=== PATIENT | female | born 1985 | race Caucasian/White ===

== ENCOUNTER 2019-04-14 08:18 | Outpatient (RCR) | payer OTHER, SELFPAY ==
[2019-04-14 09:52] LABS: Hematocrit 37.2 % (37.0-47.0); Hemoglobin 12.1 g/dL (12.0-15.0)
[2019-04-14 10:03] LABS: Glucose 1 Hour PP 50gm Dose 72 mg/dL
[2019-04-14 10:32] LABS: Vitamin D 25 Hydroxy 59.6 ng/mL
[2019-04-14 10:43] LABS: HIV 1/2 Ab P24 Ag Result Negative (Negative)
[2019-04-14] MEDS: RHO(D) IMMUNE GLOBULIN 300 MCG SYRINGE IM (14:47)
== END 2019-07-13 23:59 | disposition home or self-care (01) ==
LOC: ANHLAB 08:18
PROVIDERS: Visit Provider Obstetrics & Gynecology Gynecology
DX: Z36.89 Encounter for other specified antenatal screening (principal); Z29.13 Encounter for prophylactic Rho(D) immune globulin; O36.0930 Maternal care for other rhesus isoimmunization, third trimester, not applicable or unspecified; Z3A.00 Weeks of gestation of pregnancy not specified
CPT/HCPCS: 36415; 82306; 82947; 85014; 85018; 86703; 90384; 96372; G0432; J2790

== ENCOUNTER 2019-07-01 05:09 | Inpatient (IN) | payer OTHER, SELFPAY ==
[2019-07-01] VITALS (97 sets, daily range): BP systolic 83–168; BP diastolic 37–141; PULSE 43–170; RESP 16–20; TEMP 36.2–36.9; O2SAT 99–100; BMI 26.4
[2019-07-01 05:44] LABS: Basophils Percent Auto 0.3 % (0.2-1.2); Eosinophils Percent Auto 0.6 % (0-4.4); Hematocrit 37.7 % (37.0-47.0); Hemoglobin 12.5 g/dL (12.0-15.0); Immature Granulocyte Absolute 0.03 K/mm3 (0.00-0.031); Immature Granulocyte Percent A 0.4 % (0-0.5); Lymphocytes Percent Auto 26.2 % (18.3-44.2); Mean Corpuscular HGB Conc 33.2 g/dl (32-36); Mean Corpuscular Hemoglobin 30.7 pg (26-34); Mean Corpuscular Volume 92.6 fl (80-100); Mean Platelet Volume 9.8 fl (7.4-10.4); Monocytes Absolute Auto 0.5 K/mm3 (0.1-0.6); Monocytes Percent Auto 7.4 % (2.6-8.5); Neutrophils Absolute Auto 4.5 K/mm3 (1.3-6.7); Neutrophils Percent Auto 65.1 % (45.5-73.1); Platelet Count Result 204 k/mm3 (150-375); Red Blood Count 4.07 M/mm3 (4.2-5.4); Red Cell Distribution Width 13.2 % (11.5-14.5); White Blood Count 6.9 K/mm3 (4.5-10.0)
--- NOTE | 2019-07-01 05:45 | LDADM ---
This patient, Nicolasa Bradshaw, was admitted to Labor/Delivery/Recovery 104 on 07/01/19 at 05:09. Plans for labor, pain management and were discussed with patient. Patient/family oriented to hospital policies and general routines including ID bracelet, bed and alarms, visiting hours, pain management, procedures, bathroom and other care routines, personal items, smoking policy, room service/diet and guest tray routines, security routines, and visiting hours. Patient/Family are encouraged to report perceived risks to care and to ask questions if they do not understand what they are told or what they should do. See OBIX for further documentation.
[2019-07-01] MEDS: AMPICILLIN 2 GM/NS 100 ML 2 GM/100 ML BAG IVPB (05:54)
[2019-07-01] MEDS: LACTATED RINGERS 1,000 ML 125 ML IV CONT ×3 (05:55→11:12)
--- NOTE | 2019-07-01 06:24 | WPDANESEPP ---
Anes - Eval Pre Procedure Procedure: Labor epidural Date/Time: 07/01/19 06:24 Preop Diagnosis: pain during labor Pre Op Diagnosis: induction of labotr Patient Data Age: 34 Gender: F Height: 1.63 m Weight: 70 kg Last Vital Signs Temp 36.9 C 07/01/19 05:58 Pulse 92 07/01/19 05:39 BP 109/72 07/01/19 05:39 Allergies Allergy/AdvReac Type Severity Reaction Status Date / Time Sulfa (Sulfonamide AdvReac Mild Nausea and Verified 06/16/19 12:29 Antibiotics) Vomiting Home Medications Medication Instructions Recorded Confirmed Type PNV cmb#95-ferrous fumarate-FA 1 tablet PO DAILY 06/16/19 06/16/19 History [] cholecalciferol (vitamin D3) 2,000 unit PO DAILY 06/16/19 06/16/19 History [Vitamin D3] Laboratory Tests 07/01/19 07/01/19 05:35 05:35 WBC 6.9 K/mm3 K/mm3 (4.5-10.0) RBC 4.07 M/mm3 L M/mm3 (4.2-5.4) Hgb 12.5 g/dL g/dL (12.0-15.0) Hct 37.7 % % (37.0-47.0) MCV 92.6 fl fl (80-100) MCH 30.7 pg pg (26-34) MCHC 33.2 g/dl g/dl (32-36) RDW 13.2 % % (11.5-14.5) Plt Count 204 k/mm3 k/mm3 (150-375) MPV 9.8 fl fl (7.4-10.4) Immature Gran % (Auto) 0.4 % % (0-0.5) Neut % (Auto) 65.1 % % (45.5-73.1) Lymph % (Auto) 26.2 % % (18.3-44.2) [place] % (Auto) 7.4 % % (2.6-8.5) Eos % (Auto) 0.6 % % (0-4.4) Baso % (Auto) 0.3 % % (0.2-1.2) Lymph # (Auto) 1.80 K/mm3 K/mm3 (0.9-3.2) [place] # (Auto) 0.5 K/mm3 K/mm3 (0.1-0.6) Eos # (Auto) 0.0 K/mm3 K/mm3 (0-0.3) Baso # (Auto) 0.0 K/mm3 K/mm3 (0.0-0.1) Abs Immat Gran (auto) 0.03 K/mm3 K/mm3 (0.00-0.031) Absolute Neuts (auto) 4.5 K/mm3 K/mm3 (1.3-6.7) Absolute Nucleated RBC 0.0 K/mm3 K/mm3 (0.0-0.012) Nucleated RBC % 0.0 % % (0.0-0.2) RPR Pending Patient hx anesthesia problems: none Family hx anesthesia problems: none [facility] Family History Family History (Updated 06/16/19 @ 12:32 by Alexander Saavedra RN) Grandparent Diabetes mellitus Congestive heart failure Social History Social History Smoking status: Never smoker Substance use: never Spiritual care concerns: No Exam Day of Procedure 07/01/19 06:24
--- NOTE | 2019-07-01 07:53 | WPDOBADMIT ---
Obstetrics - Admit Note Admission Note: record reviewed. No pertinent additions to the history and/or any subsequent changes in the physical findings that are not consistent with the expected course of the were found. Additions to the history and/or subsequent changes in the physical findings follow. Here for MIL. Cervix 1-2/50/-2 AROM with clear fluid. FHTs reactive.
[2019-07-01] MEDS: AMPICILLIN 1 GM/NS 50 ML 1 GM/50 ML BAG IVPB ×2 (10:02→14:21)
--- NOTE | 2019-07-01 15:44 | P.PCNOB_ITS ---
OB - Delivery Note Procedure Delivery date: 07/01/19 Procedure: Intrapartal events: None Induction method: per pitocin protocol Delivery monitor: external FHT and external uterine Route of delivery: Laceration description: Perineal - 2nd Degree Delivery repair: vicryl Specimen: No Estimated blood loss (mL): 50 [place] Baby Weeks of gestation at delivery: 39
--- NOTE | 2019-07-01 15:45 | PM.OBDSVD ---
DS: Diagnosis Discharge Diagnosis (1) 39 weeks gestation of : Code(s): Z3A.39 - 39 weeks gestation of Status: Acute (2) (normal spontaneous vaginal delivery): Code(s): O80 - Encounter for full-term uncomplicated delivery Status: Acute OB - DS: Summary OB Procedures : Ultrasound OB Procedures Intrapartum: Spontaneous Vag Delivery OB Procedures: : None Peripartum Data Delivery Method: Natural Vaginal Laceration description: Perineal - 2nd Degree complications: none Status at Discharge Functional status at discharge: independent ambulation Overall status at discharge: patient is progressing back to baseline Time Spent with Patient Time attestation: Total time spent providing and/or coordinating discharge services: DS: Data Data Completed and Pending Labs on day of discharge: Labs from last 24 hours 07/01/19 07/01/19 07/01/19 05:35 05:35 05:34 WBC 6.9 RBC 4.07 L Hgb 12.5 Hct 37.7 MCV 92.6 MCH 30.7 MCHC 33.2 RDW 13.2 Plt Count 204 MPV 9.8 Immature Gran % (Auto) 0.4 Neut % (Auto) 65.1 Lymph % (Auto) 26.2 [place] % (Auto) 7.4 Eos % (Auto) 0.6 Baso % (Auto) 0.3 Lymph # (Auto) 1.80 [place] # (Auto) 0.5 Eos # (Auto) 0.0 Baso # (Auto) 0.0 Abs Immat Gran (auto) 0.03 Absolute Neuts (auto) 4.5 Absolute Nucleated RBC 0.0 Nucleated RBC % 0.0 RPR Pending Blood Type A Negative Antibody Screen Positive Antibody Identification Passive Due to RH Imm Glob Antigen Identification Cancelled DONIS, IgG Interpret Not Performed DONIS, Poly Interpret Negative DONIS, Complement Interp Not Performed Discharge Plan Discharge Attending physician on discharge: Krys Dahl Discharging Clinician: Krys aDhl Anticipated Discharge Date/Time: 07/02/19 15:46 Patient Disposition: Home, Self-Care Activity: pelvic rest Diet: regular Discharge Instructions: Education: Mom and Baby Guide Given to: Mother Follow-Up: Call your delivering provider's office for an appointment to be seen in: Call MD for appointment Mom and baby should come to the [facility] for the follow-up appointment. Appointment Date/Time: July 05, 2019 at 10:00 am What to expect at your follow-up visit: Physical Assessment Call [phone] if you are unable to keep your appointment time. BREAST CARE: 1. Wear a snug supportive bra. 2. For engorgement discomfort: Breast Feeding: A. Apply warm moist washcloths B. Express milk as needed to relieve engorgement C. Wear loose clothing 3. For sore nipples: A. Identify correct latch-on B. Apply warm moist washcloths before and after nursing C. Air dry nipples after nursing D. May apply Lansinoh cream to nipples EPISIOTOMY/PERINEAL CARE: 1. Until bleeding stops, use your harry bottle after urinating 2. Change your pad frequently throughout the day 3. You may take sitz baths several times a day (fill your bathtub with warm water and soak for 20 minutes.) Do NOT bathe in the water 4. No tub baths until seen by your physician - You may shower ACTIVITY: 1. Rest as much as possible. 2. Do not exercise or lift anything heavier than your baby (such as laundry or other children.) 3. Avoid stairs or driving as much as possible. 4. Do not put anything into the vagina. No douching, tampons, or sexual activity until seen by physician. NOTIFY PHYSICIAN IF YOU HAVE ANY QUESTIONS OR IF ANY OF THE FOLLOWING SYMPTOMS OCCUR: 1. If your stitches becomes red, swollen, or more painful than what you have experienced in the hospital. 2. If your vaginal bleeding becomes foul smelling. 3. If your vaginal bleeding becomes more heavy than a period or if your bleeding changes from pink to bright red. However, you may pass an occasional walnut-sized clot once or tw
--- NOTE | 2019-07-01 18:57 | OBPPTRN ---
Patient transferred to post room #284 via wheelchair. Support person, Vignesh, present. Oriented to unit, room, information board, rooming in, admission packet and security measures. Patient verbalizes understanding.
[2019-07-01] MEDS: IBUPROFEN 600 MG TABLET PO (23:47)
[2019-07-02] MEDS: ACETAMINOPHEN 325 MG TABLET 650 MG PO (02:12)
[2019-07-02 04:58] LABS: Hematocrit 38.2 % (37.0-47.0); Hemoglobin 13.2 g/dL (12.0-15.0)
[2019-07-02 07:31] LABS: Rapid Plasma Reagin Non-Reactive (NonReactive)
[2019-07-02 08:25] VITALS: BP 97/69; PULSE 90; RESP 16; TEMP 36.8; O2SAT 96
[2019-07-02] MEDS: MULTIVIT/MIN/PREN/FOL AC/IRON TABLET 1 TAB PO (08:51)
[2019-07-02] MEDS: IBUPROFEN 600 MG TABLET PO (08:51)
[2019-07-02] MEDS: RHO(D) IMMUNE GLOBULIN 300 MCG SYRINGE IM (09:57)
--- NOTE | 2019-07-02 10:30 | PC.NURSE ---
Consulted with patient, mother reports this is 3rd child to breastfeed. Mother states is eagerly latching without difficulties or discomfort. Reviewed infant feeding cues, frequencies, duration of feedings, feeding elimination flow sheet, and signs of adequate intake. Mother wishes 24 hour discharge. Mother is feeding as required and waking to feed if needed. is currently meeting outcomes for weight, output, jaundice and feeding frequencies. Mother states she feels confident to continue effective at home. Reviewed transition to breast milk, signs of adequate intake, and engorgement/relief. Instructed to call ICP if intake/output less than required. Reviewed regular medications mother is taking. Information provided per Bridget. Reviewed community resources on the [facility] website and in the Mom/Baby guide. Information on outpatient services provided. Mother has no further questions at this time.
--- NOTE | 2019-07-02 14:07 | PC.NURSE ---
Patient was given the opportunity to view the discharge video Mother & Baby Care, The First Two Weeks and to ask questions. Patient declined viewing the video and has been given the mother/baby guide for home reference.
--- NOTE | 2019-07-02 15:41 | WPDANLDPN2 ---
Anes-Prog Note L&D Date/Time: 07/02/19 15:41 Comfortable throughout: labor and delivery Neuraxial method: epidural Epidural/Spinal procedure site: clean & non-tender Neuro status: Neuro function grossly intact. Cardiovascular status: normal Respiratory status: normal Airway patency: baseline Mental status: baseline Post-Op hydration status: normal Vital Signs: Last Vital Signs Temp 36.8 C 07/02/19 08:25 Pulse 90 07/02/19 08:25 Resp 16 07/02/19 08:25 BP 97/69 L 07/02/19 08:25 Pulse Ox 96 07/02/19 08:25 I/O: Intake & Output 07/01/19 07/02/19 07/02/19 23:59 07:59 15:59 Intake Total 1000 Output Total 85 Balance 915 Post-procedural complaints: none Patient feedback: Patient satisfied with anesthetic care.
[2019-07-05 09:47] VITALS: BP 110/67; PULSE 79; RESP 16; TEMP 36.4
== END 2019-07-02 18:07 | disposition home or self-care (01) | DRG 807 ==
LOC: ANHLDR 07-05 10:29 → ANHOB2 07-05 10:29
PROVIDERS: Admitting Provider Obstetrics & Gynecology Gynecology; Visit Provider Obstetrics & Gynecology
DX: O99.824 Streptococcus B carrier state complicating childbirth (principal); Z37.0 Single live birth; Z3A.39 39 weeks gestation of pregnancy; O70.1 Second degree perineal laceration during delivery
CPT/HCPCS: 36415; 85014; 85018; 85025; 86592; 86850; 86880; 86900; 86901; 90384; A9270; J0290; J2590; J2790; J2795; J7120

== ENCOUNTER 2023-06-30 02:13 | Day surgery (SDC) | payer OTHER, SELFPAY ==
[2023-06-18 14:31] VITALS: BMI 23.1
--- NOTE | 2023-06-18 14:32 | PC.NURSE ---
Report to the Outpatient Waiting Room, entrance under the green pavilion located off [facility], at time _0600_ on date _06/30/23_. Planned Procedure Time: _0730_. Time changes happen often and if your time is changed the preop area will call you the afternoon before. - You and your visitor will be asked to self-screen and do not enter if you have any COVID symptoms. - A mask is optional within the hospital at this time. Patients may have clear liquids (water, carbonated beverages, clear teas, apple juice) until 3 hours prior to surgery with a maximum of 20 ounces. - No food from midnight until time of surgery - Infants may have breast milk until 4 hours before surgery, formula 6 hours prior to surgery. - Children will be allowed to drink immediately following surgery. If applicable, please bring a bottle or sippy cup to assist with drinking. Juice, water, soda, and popsicles are readily available. For infants on formula, please bring formula the day of surgery. Pacifiers are allowed. Take the following medications with a SIP of water the morning of surgery: _none__ DO NOT STOP ANY OF YOUR OTHER PRESCRIPTION MEDICATIONS PRIOR TO SURGERY ?EXCEPT THE FOLLOWING Medications to discontinue per physician __stop supplements 3 days prior Date to take last dose Please no make-up, nail kinyarwanda, hairspray, perfume, deodorant, or body powder the day of surgery. No jewelry (including any body piercings) or valuables the day of surgery, leave them at home. Please take a shower or bath the night before, or the morning of, surgery with an antibacterial soap. Wear comfortable, loose fitting clothing. Children are encouraged to wear pajamas. - Jewelry must be removed prior to entering the operating room. Rings and piercings that are not removed may be cut off. - The hospital will not accept responsibility for valuables. - Please leave all valuables, including medications, at home the day of surgery. If you are going home after surgery, a licensed tow bar driver must drive you home. - NO public transportation without another adult if you receive anesthesia. - We recommend that an adult stay with you for 24 hours following discharge. - We also recommend that you do not drive, make important decision, drink alcoholic beverages, or take any drugs that were not prescribed by your health care provider for at least 24 hours after your discharge time. For Pediatric surgeries, we recommend two adults accompany the child home. Follow any additional instructions given to you from your surgeon. If you or anyone in your household have experienced Covid symptoms in the past week, please notify your surgeon or the nurse liaison at the phone number below for possible testing. Telephone instructions given to _Patient__and asked if any additional questions and then verbalized understanding. Patient advised to call surgeon office or pre surgery nurse liaison [phone] if any additional questions.
[2023-06-30] MEDS: ACETAMINOPHEN 500 MG TABLET 1000 MG PO (06:30)
[2023-06-30] MEDS: LACTATED RINGERS 1,000 ML 30 ML IV CONT ×2 (06:30→08:02)
--- NOTE | 2023-06-30 06:45 | P.PNAN_ITS ---
Anes - Initial Pre Proc Eval Procedure: Operation Date: 06/30/23 07:30 Proposed Procedures p Hysteroscopy Dilation and Curettage - Krys Dahl MD Date/Time: 06/30/23 06:45 Surgeon: Krys Dahl MD Pre Op Diagnosis: menorrhagia Patient Data Age: 38 Gender: F Height: 1.63 m Weight: 61.24 kg Allergies Allergy/AdvReac Type Severity Reaction Status Date / Time No Known Allergies Allergy Verified 06/18/23 14:22 Home Medications Medication Instructions Recorded Confirmed Type cholecalciferol (vitamin D3) 50 2,000 unit PO DAILY 06/16/19 06/18/23 History mcg (2,000 unit) tablet (Vitamin D3) Patient hx anesthesia problems: none Family hx anesthesia problems: none Results Review: All pre-operative results and documents have been reviewed as part of the pre- operative evaluation. [facility] Family History Family History (Updated 06/16/19 @ 12:32 by Alexander Saavedra RN) Grandparent Diabetes mellitus Congestive heart failure Social History Social History Smoking status: Never smoker Alcohol intake: current Drinks per week: 5 Substance use: never Substance use type: does not use Living arrangements: with family Spiritual care concerns: No Anes - Eval Final PreProcedure Day of Procedure 06/30/23 06:45 Patient weight: normal Heart: regular rate and rhythm Lungs: clear to auscultation and normal air movement Airway: Mallampati scale class II Neurological: alert and oriented Last oral intake: >/= 8 hours ASA classification: I Emergent: no Anesthetic plan: proceed Anesthesia type and monitoring: general GIVS and standard monitoring Results Review: All pre-operative results and documents have been reviewed as part of the pre- operative evaluation. Informed Consent: The patient's anesthetic plan and its attendant risks and benefits were discussed with the patient/family/POA. Questions were solicited and answers provided to the satisfaction of the patient/family/POA.
[2023-06-30 07:00] VITALS: BP 119/78; PULSE 74; RESP 14; TEMP 36.4; O2SAT 100
--- NOTE | 2023-06-30 07:24 | WPDHPUPDATE1 ---
History and Physical Update Update Date/Time: 06/30/23 07:24 History and Physical has been reviewed, including an updated exam of the patient. There are NO changes in the patient's condition. Risks, benefits, and alternatives have been discussed and questions answered. Patient agrees to proceed with procedure.
--- NOTE | 2023-06-30 07:25 | P.HP_ITS ---
History of Present Illness History of Present Illness Consent: Risks, benefits, and alternatives have been discussed and questions answered. Patient agrees to proceed with procedure. Chief complaint: menorrhagia Narrative: Nicolasa Bradshaw is a 38 year old female With a change in her cycles over the past year. Bleeding has become heavier using a super tampon every hour with pads. She is also passing clots. Cycles are lasting longer up to 10 days. Cycle timing is still regular. Her pelvic ultrasound is normal as is her CBC. It was recommended to proceed with D&C hysteroscopy. Risks infection, bleeding, perforation, and possible pathology are discussed. Patient voices understanding and agrees to proceed. Review of Systems Review of Systems: not repeated day of surgery; patient states no changes in status PMFSH Past Medical History Medical History (Updated 06/30/23 @ 07:28 by Krys Dahl MD) Migraine (normal spontaneous vaginal delivery) X3 Family History Family History (Updated 06/16/19 @ 12:32 by Alexander Saavedra RN) Grandparent Diabetes mellitus Congestive heart failure Social History Social History Smoking status: Never smoker Alcohol intake: current Drinks per week: 5 Substance use: never Substance use type: does not use Living arrangements: with family Spiritual care concerns: No Meds Home Medications and Allergies Home Medications Medication Instructions Recorded Confirmed Type cholecalciferol (vitamin D3) 50 2,000 unit PO DAILY 06/16/19 06/18/23 History mcg (2,000 unit) tablet (Vitamin D3) Allergies Allergy/AdvReac Type Severity Reaction Status Date / Time No Known Allergies Allergy Verified 06/30/23 07:04 Vital Signs Vital Signs - 24 hr 06/30/23 07:00 Temperature 97.6 F Pulse Rate 74 Respiratory Rate 14 Blood Pressure 119/78 Pulse Oximetry 100 Oxygen Delivery Room Air Exam Const: General: healthy appearing and alert Orientation/consciousness: patient oriented x3 Resp: Effort & Inspection: normal respiratory effort GI: GI Palp: Yes Soft to palpation, No Tenderness to palpation present (GI) and No Palpable mass present : External Female Exam: normal external appearance Speculum Exam - Vagina: normal appearance of the vagina and normal vaginal discharge Speculum Exam - Cervix: normal appearance of the cervix Bimanual exam- vagina & uteru s: uterine size normal and consistency normal Bimanual Exam- Adnexa, other: normal adnexae and No adnexal tenderness Neuro: General: patient oriented x3 Assessment and Plan Assessment and plan (1) Menorrhagia: Code(s): N92.0 - Excessive and frequent menstruation with regular cycle Status: Acute Assessment and Plan: plan to proceed with D&C hysteroscopy
[2023-06-30] MEDS: KETOROLAC 15 MG/ML VIAL (*BKC) IV PUSH (07:40)
--- NOTE | 2023-06-30 07:59 | W.PM.PROC2 ---
Procedure Note - Detailed Date of Procedure 06/30/23 Pre-op Diagnosis menorrhagia Post-op Diagnosis Same Procedure Performed D&C hysteroscopy Surgeon Krys Dahl MD Substation Operator Chief Trina Keys, MS4 Anesthesia MAC Findings uterus sounds to 8cm and the endometrium appears grossly normal Description of Procedure The patient taken to the operating room and placed under anesthesia in the dorsal lithotomy position. She was prepped and draped in usual sterile fashion. Williamson speculum was placed in the vagina and the cervix grasped on the anterior lip with a tenaculum. The uterus is sounded to 8cm. The diagnostic hysteroscope was placed. No abnormalities are noted therefore the hysteroscope was removed. The OO sharp curette was used to curette the endometrium until a good uterine cry is noted in all areas. The tenaculum site had brisk bleeding. The silver nitrate was applied without success. The Monsel's was applied and good hemostasis was obtained. All instruments were then removed. Sponge, needle, and instrument counts are correct per the OR staff. The patient was awakened from anesthesia and taken to recovery in stable condition. Estimated Blood Loss 50 Drains No Packing No Pathology Yes ( Endometrial curettings) Complications No immediate complications Condition Stable Disposition PACU
[2023-06-30 08:02] VITALS: BP 109/63; PULSE 85; O2SAT 100
[2023-06-30 08:32] VITALS: BP 112/69; PULSE 58
[2023-06-30 09:02] VITALS: BP 106/69; PULSE 55
== END 2023-06-30 09:17 | disposition home or self-care (01) ==
PROVIDERS: Visit Provider Obstetrics & Gynecology Gynecology
PROC: 0U5B8ZZ Destruction of Endometrium, Via Natural or Artificial Opening Endoscopic (ICD-10-PCS; CPT 58563; principal; 2023-06-30 07:30)
DX: N92.0 Excessive and frequent menstruation with regular cycle (principal)
CPT/HCPCS: 58558; 88305; A9270; J1100; J1885; J2250; J2405; J2704; J3010; J7120